=== PATIENT | male | born 1965 | race Caucasian/White ===

== ENCOUNTER → 2018-05-23 | Outpatient (CLI) | payer OTHER ==
[~2018-05-23] MED LIST: ATORVASTATIN CA40 MG PO; FLEXERIL PO; NORCO 5-325 TA1 EACH PO
== END ==
LOC: CAT 14:38
DX: Z13.6 Encounter for screening for cardiovascular disorders (principal); E78.00 Pure hypercholesterolemia, unspecified

== ENCOUNTER → 2018-05-28 | Outpatient (CLI) | payer OTHER ==
--- NOTE | ~2018-05-28 | EXE ---
[facility] [place]re [place] [address] STRESS ECHOCARDIOGRAM Name: ZACHARY RAMAN Room #: REG CL Karan#: [id number] Admission: 05/28/18 Attend Phys: Mingo Liz, Discharge: Date of : 65 Date of Service: 05/29/18 [facility] Report #: [id number] THIS REPORT FOR: //name// APPROVED REPORT Study performed: 05/28/2018 09:41:55 Exam: Stress Echocardiogram Indication: Hypertension, Chest pain Patient Location: Out-Patient Stress Nurse: Nuria Castellano RN Room #: Echo lab 2 Status: routine Ht: 6 ft 2 in HR: 81 bpm BP: 144/96 mmHg Rhythm: NSR Medical History Medical History: HTN, Hyperlipidemia Allergies: No known drug allergies Exercise History: Physically active Procedure The patient underwent an Exercise Stress Test using the Tre Protocol. Blood pressure, heart rate, and EKG were monitored. An Echocardiogram was performed by process controls technician in four stages in quad fashion. At peak stress, four selected images were obtained and placed side by side with resting images for comparison. Stress Test Details Stress Test: Exercise stress testing was performed using a Tre protocol. HR Resting HR: 81 bpm Max Heart Rate (APMHR): 167 bpm Max HR Achieved: 179 bpm Target HR (85% APMHR): 141 bpm % of APMHR: 107 Recovery HR: 108 bpm HR response to stress: Normal HR response to stress BP Resting BP: 144/96 mmHg Max BP: 144/102 mmHg Recovery BP: 120/84 mmHg [facility] [address] [place] [address] STRESS ECHOCARDIOGRAM Name: ZACHARY RAMAN Room #: REG CL SimoneMarthaTanja#: [id number] Admission: 05/28/18 Attend Phys: Mingo Liz, Discharge: Date of : 65 Date of Service: 05/29/18 [facility] Report #: [id number] Clinical Reason for Termination: Maximal effort Exercise duration: 10 min 31 sec Highest Stage Achieved: Stage 4: 4.2 mph at 16% grade. Exercise capacity: 13.7 METs Overall Exercise Capacity for Age: Good Pre-Stress Echo The resting Echocardiogram showed normal left ventricular contractility with an estimated Ejection Fraction of about >55%. Post-Stress Echo The stress Echocardiogram showed normal left ventricular contractility with an estimated Ejection Fraction of about >70%. Clinical Normal augmentation of myocardial wall segments using a 17 segment model. Conclusion Clinical Response: Non-ischemic Exercise Capacity: Average Stress ECG Response: Non-ischemic Stress Echo Images: Non-ischemic No prior study available for comparison. Other Information Study Quality: Fair <ELECTRONICALLY SIGNED> By: Mingo Liz MD, FACC 05/29/18 1007 [facility] 1007 Mingo Liz MD, FACC /INF
== END ==
LOC: CV 09:36 → NUC 11:22
DX: I10 Essential (primary) hypertension (principal); E78.5 Hyperlipidemia, unspecified

== ENCOUNTER → 2018-06-19 | Outpatient (CLI) | payer BC, OTHER ==
[2018-06-19 09:54] LABS: BUN 19 mg/dL (7-18); CHOLESTEROL 117 mg/dL (<200); HDL CHOLESTEROL 38 mg/dL (>40); LDL CHOLESTEROL 66 mg/dL (<100); TC:HDL 3.1 Ratio (Not establshd); TRIGLYCERIDE 67 mg/dL (<150); VLDL 13 mg/dL (<40)
== END ==
LOC: CAT 09:05 → SPEC 09:05 → CAT 12:54
PROVIDERS: Internal Medicine Cardiovascular Disease
DX: I25.10 Atherosclerotic heart disease of native coronary artery without angina pectoris (principal); R07.89 Other chest pain